=== PATIENT | female | born 1990 | race Hispanic/Latino ===

== ENCOUNTER 2017-08-09 04:54 | Inpatient (IN) | payer BC ==
[2017-08-09 05:16] VITALS: BMI 32.8
[2017-08-09] MEDS ORDERED: ceFAZolin 2 GM in Sodium Chloride 0.9% 100 ML IVPB ONE (05:20)
[2017-08-09] MEDS: Lactated Ringer's 1,000 ML IV SCH ×2 (06:00→06:53)
[2017-08-09 06:29] LABS: BASO % 0.3 % (0.0-2.0); EOS # 0.3 K/uL (0.0-0.7); EOS % 2.8 % (0.0-4.0); HEMOGLOBIN 12.8 g/dL (12.0-16.0); LYMPH # 2.4 K/uL (1.0-4.3); LYMPH % 21.3 % (20.0-40.0); MEAN CELL VOLUME 96.4 fl (81.0-99.0); MEAN CORPUSCULAR HEMOGLOBIN 31.9 pg (27.0-31.0); MEAN CORPUSCULAR HGB CONC 33.1 g/dL (33.0-37.0); MEAN PLATELET VOLUME 9.6 fl (7.2-11.7); MONO # 0.6 K/uL (0.0-0.8); MONO % 5.3 % (0.0-10.0); NEUT # 8.1 K/uL (1.8-7.0); NEUT % 70.3 % (50.0-75.0); NRBC % 0.1 % (0.0-0.0); RED CELL DISTRIBUTION WIDTH 13.1 % (11.5-14.5); WHITE BLOOD COUNT 11.5 K/uL (4.8-10.8)
[2017-08-09] MEDS ORDERED: Phenylephrine 10 mg/ml Inj ONE (06:33)
[2017-08-09] MEDS ORDERED: Morphine 1 mg/ml preservative-free Inj(Duramorph) ONE (06:34)
[2017-08-09] MEDS ORDERED: ePHEDrine 50 mg/ml Inj ONE (06:34)
--- NOTE | 2017-08-09 06:53 | OBHP ---
Datetime: 08/09/2017 06:48 IP Adm Impression: Term, intrauterine IP Admit Plan: Admit to unit; Initiate Section protocol Admit Comment, IP Provider: @ 39 wks GA with previuos cesaren section c/o of ctx pain increa sing instity adn freuency, dneis lof, vb, +FM. pt also with hx of asthma reprots incresing use of inh aler mediations OB: FT CXS uncomplicated [employer]IOR [employer] denies PMH: Asthma (follows with pulmonary) PSH: CxS MEDS: PNV, ALbutoreol SHX: negative etoh/tobacc/drugs NKDA A/p @ 39 wks preiovus cesearen section for repeat also with asthma -adm ti L+D -npo, ivf -admissinl bs -cont toco adn efm -epdiural/or awrae -abdomian prpe -zapien to gavity -scds Pelvic Type - PN: Adequate Extremities - PN: Normal Abdomen - PN: Normal Back - PN: Normal Breast - PN: Not Done Lungs - PN: Normal Heart - PN: Normal Thyroid - PN: Normal Neurologic - PN: Normal HEENT - PN: Normal General - PN: Normal Presentation-Admit: Vertex FHR - Baseline A Provider: 130 Membranes, Provider: Intact Contraction Comments Provider: 7 min Gestation - Est Wks by US: 39.0 IP Hx Assessment: The History has been Reviewed and is Current EGA AdmitDate IP: 38.6 Vital Signs Provider: Reviewed; Within Normal Limits IP Chief Complaint: Uterine contractions NICHD Variability Prov Fetus A: Moderate 6-25bpm FHR Category Provider Fetus A: Category I NICHD Decel Fetus A IP Provider: None Dilatation, Provider: 2 Effacement, Provider: 30 Station, Provider: -3 Genitourinary Exam: Normal DTRs - PN: Normal
[2017-08-09] MEDS ORDERED: Morphine 1 mg/ml preservative-free Inj(Duramorph) IT ONE (08:50)
[2017-08-09] MEDS ORDERED: Oxycodone/Acetaminophen 5/325 mg Tab PO PRN ×3 (08:56→12:27)
--- NOTE | 2017-08-09 09:01 | PCM.SURG1 ---
Surgeon's Initial Post Op Note - Surgeon's Notes Surgeon: Ryanne Beasley MD Plating Machine Operator: Skye Mcdowell MD Type of Anesthesia: Spinal Pre-Operative Diagnosis: Term intrauteirne , prevuisu cesearen seciton , in ealry labor, asthma, for repeat ceserean section Operative Findings: live male infnat, cephalica presentatin apgrs 9,9 weight of 6lb 9 ounces ebl 800 ml, no ocmplications. Normal appearing uterus tubes and ovaries. assurance senior present for deliveyr. Dr Hung Mcdowell was surigcal assisatn and prsent for entire case adn esential in gaining etnry, retractin, exposure, holidng lbader blade, helpign to deliver infant, clsing all layers Post-Operative Diagnosis: same as above Operation Performed: Repeat low transverse cesearen section Specimen/Specimens Removed: placenta Estimated Blood Loss: EBL {In ML}: 800 Blood Products Given: N/A Drains Used: No Drains Post-Op Condition: Good Date of Surgery/Procedure: 08/09/17 Time of Surgery/Procedure: 07:35
--- NOTE | 2017-08-09 09:04 | OBDS ---
DELIVERY PERSONNEL Delivery Doctor: Katherin Beasley MD Contact Center Team Lead: Arelis Burden RN Anesthesiologist: Wiliam Whalen MD MATERNAL INFORMATION Delivery Anesthesia: Spinal Medications in Delivery: Pitocin 30u/500 of LR, followed by Pitocin 20u/1000mL of LR Placenta Cultured: No Maternal Complications: None Provider Comments: live male ceaphica presentnati apgrs 9,9 weigh of 6lbs 9 ounces. normal ap peairn utuers, tubes and ovairesn bilarally [facility] LABOR SUMMARY EDC: 08/17/2017 00:00 No. Babies in Womb: 1 Attempted: No Labor Anesthesia: None LABOR INFORMATION Reason for Induction: Not Applicable Group B Beta Strep: Positive Antibiotics # of Doses: Ancef x 1 Antibiotics Time of Last Dose: 0750 Steroids Given: None Reason Steroids Not Administered: Not Applicable MEMBRANES Membranes Rupture Method: Artificial Rupture of Membranes: 08/09/2017 08:10 Length of Rupture (hrs): 0.02 Amniotic Fluid Color: Clear Amniotic Fluid Amount: Moderate Amniotic Fluid Odor: Normal STAGES OF LABOR Stage 3 hrs: 0 Stage 3 min: 1 CSECTION DELIVERY Primary Indication: Repeat Elective CSection Urgency: Elective CSection Incidence: Repeat Labor: No Labor Elective: Elective CSection Incision: Lower Uterine Transverse BABY A INFORMATION Infant Delivery Date/Time: 08/09/2017 08:11 Method of Delivery: Born in Route : No : N/A Forceps: N/A Vacuum Extraction: N/A Shoulder Dystocia : No SHOULDER DYSTOCIA BABY A Infant Delivery Date/Time: 08/09/2017 08:11 PRESENTATION/POSITION BABY A Presentation: Cephalic Cephalic Presentation: Vertex Breech Presentation: N/A PLACENTA INFORMATION BABY A Placenta Delivery Time : 08/09/2017 08:12 Placenta Method of Delivery: Manual Removal Placenta Status: Delivered SCORES BABY A Heart Rate 1 min: >100 bpm Resp Effort 1 min: Good Cry Reflex Irritability 1 min: Cough or Sneeze or Pulls Away Muscle Tone 1 min: Active Motion Color 1 min: Body [place], Extremities Blue Resuscitation Effort 1 min: Tactile Stimulation SCORE 1 MIN: 9 Heart Rate 5 min: >100 bpm Resp Effort 5 min: Good Cry Reflex Irritability 5 min: Cough or Sneeze or Pulls Away Muscle Tone 5 min: Active Motion Color 5 min: Body [place], Extremities Blue Resuscitation Effort 5 min: N/A SCORE 5 MIN: 9 INFORMATION BABY A Gestational Age at Delivery: 38.6 Gestational Status: Term Outcome : Liveborn Condition : Stable Sex: Male IDENTIFICATION/MEDS BABY A ID Band Number: [id number] ID Band Location: Left Leg; Left Arm CORD INFORMATION BABY A No. Cord Vessels: 3 Nuchal Cord : N/A Infant Suction: Mouth
[2017-08-09] MEDS ORDERED: Albuterol 0.042% Inhal Sol (1.25 mg/3 mL) UD IH PRN (12:27)
[2017-08-09] MEDS ORDERED: Albuterol 0.042% Inhal Sol (1.25 mg/3 mL) UD INH PRN (12:27)
[2017-08-09] MEDS ORDERED: Albuterol HFA 90 mcg/actuation (8 g) INH PRN (12:57)
[2017-08-10] MEDS: Oxycodone/Acetaminophen 5/325 mg Tab PO PRN ×3 (04:30→22:06)
[2017-08-10 07:27] LABS: BLOOD UREA NITROGEN 8 mg/dl (7-17); CALCIUM 8.5 mg/dL (8.4-10.2); GFR AFRICAN-AMERICAN > 60; GFR NON-AFRICAN AMERICAN > 60
[2017-08-10 07:31] LABS: HEMOGLOBIN 11.1 g/dL (12.0-16.0); MEAN CELL VOLUME 97.7 fl (81.0-99.0); MEAN CORPUSCULAR HGB CONC 32.8 g/dL (33.0-37.0); RBC 3.45 Mil/uL (3.80-5.20); RED CELL DISTRIBUTION WIDTH 13.3 % (11.5-14.5); WHITE BLOOD COUNT 15.7 K/uL (4.8-10.8)
--- NOTE | 2017-08-10 07:52 | OBPPN ---
Datetime: 08/10/2017 07:49 PP Pain Prov: Within normal limits PP Nausea Prov: Denies PP Flatus Prov: Yes PP BM Prov: No PP Breasts Prov: Normal PP Heart Prov: Normal PP Lungs Prov: Normal PP Abdomen/Uterus Prov: Normal PP Lochia Prov: Normal PP Vulva/Perineum Prov: Normal PP CVA Tenderness Prov: Normal PP Extremities Prov: Normal PP C/S Incision Prov: Normal PP Progress Prov: Normal PP Comments Phys Exam Prov: Incsicn c//di healing well PP Impression Prov: Normal progression PP Plan Prov: Continue present management PP Progress Note Prov: pt seeen and examiend had vomitign yesterday howeer feelign better, toleated , dnies any cp, sob, fever, chills pt prerots pain contorlled with medicaitn VSS PE see above A/p s/p ROLTCS POD #1 -am albs -advance diet as tolearted -pain amngent -encouare breast feedgn and mabiaton Vital Signs Provider PP: Reviewed; Within Normal Limits
[2017-08-10] MEDS ORDERED: Bisacodyl 5mg EC Tab PO PRN ×2 (08:56)
[2017-08-10] MEDS ORDERED: Multivitamin With Minerals Tab PO SCH (09:00)
[2017-08-10] MEDS: Multivitamin With Minerals Tab PO SCH (09:16)
[2017-08-10] MEDS ORDERED: Lansinoh for Breast Feeding Mothers TP ONE (21:00)
[2017-08-11] MEDS: Oxycodone/Acetaminophen 5/325 mg Tab PO PRN (05:55)
[2017-08-11 06:56] LABS: BASO # 0.1 K/uL (0.0-0.2); BASO % 0.5 % (0.0-2.0); EOS # 0.2 K/uL (0.0-0.7); EOS % 1.9 % (0.0-4.0); HEMOGLOBIN 10.5 g/dL (12.0-16.0); LYMPH # 2.3 K/uL (1.0-4.3); LYMPH % 18.2 % (20.0-40.0); MEAN CELL VOLUME 96.5 fl (81.0-99.0); MEAN CORPUSCULAR HEMOGLOBIN 32.2 pg (27.0-31.0); MEAN CORPUSCULAR HGB CONC 33.3 g/dL (33.0-37.0); MEAN PLATELET VOLUME 8.8 fl (7.2-11.7); MONO # 0.6 K/uL (0.0-0.8); NEUT # 9.5 K/uL (1.8-7.0); NEUT % 74.4 % (50.0-75.0); RBC 3.26 Mil/uL (3.80-5.20); RED CELL DISTRIBUTION WIDTH 13.3 % (11.5-14.5); WHITE BLOOD COUNT 12.8 K/uL (4.8-10.8)
[2017-08-11] MEDS: Multivitamin With Minerals Tab PO SCH (09:10)
[2017-08-11 22:54] VITALS: BP 132/69; PULSE 89; RESP 20; TEMP 97.4; O2SAT 99
== END 2017-08-11 18:40 | disposition home or self-care (01) | DRG 766 ==
LOC: H.L&D 04:54 → H.OB/GYN 12:14
PROVIDERS: ADMIT Obstetrics & Gynecology; ATTEND Obstetrics & Gynecology
PROC: 10D00Z1 Extraction of Products of Conception, Low, Open Approach (ICD-10-PCS; principal; 2017-08-09)
PROC: 4A1HXCZ Monitoring of Products of Conception, Cardiac Rate, External Approach (ICD-10-PCS; 2017-08-09)
DX: O99.824 Streptococcus B carrier state complicating childbirth (principal); Z37.0 Single live birth; Z3A.38 38 weeks gestation of pregnancy; O99.52 Diseases of the respiratory system complicating childbirth; J45.909 Unspecified asthma, uncomplicated